=== PATIENT | female | born 1990 | race Two or more races ===

== ENCOUNTER 2017-11-28 00:14 | Emergency (ER) | payer BC ==
[~2017-11-28] VITALS: Ht 165.1 cm; Wt 47.6 kg
[2017-11-28 00:21] VITALS: BP 100/61
== END 2017-11-28 00:38 | disposition home or self-care (01) ==
LOC: ER 00:21
DX: H02.841 Edema of right upper eyelid (principal)
CPT/HCPCS: 99282; A4606; Z7610